=== PATIENT | male | born 2000 | race Caucasian/White ===

== ENCOUNTER 2020-10-10 18:25 | Emergency (ER) | payer BC ==
--- NOTE | 2020-10-10 19:40 | EDM.PDOC ---
ED HPI GENERAL MEDICAL PROBLEM - General Chief Complaint: Asthma Stated Complaint: SOB/ASTHMA Time Seen by Provider: 10/10/20 19:40 - History of Present Illness INITIAL COMMENTS - FREE TEXT/NARRATIVE: 20-year-old male presents the emergency room with breathing difficulties. This started earlier today the patient used his albuterol inhaler 1 time, 2 puffs and it did not really seem to help. He did this before the baseball game and then after playing the whole game he was not better so he came in for evaluation. Patient is somewhat anxious. And he has had problems with anxiety in the past. Patient denies a cough is not had any fevers or chills. He otherwise feels okay. He tried some deep breathing exercises now he has some discomfort right over his sternum. - Related Data Allergies Allergy/AdvReac Type Severity Reaction Status Date / Time No Known Allergies Allergy Verified 10/10/20 18:48 Home Meds: Home Meds . [No Known Home Meds] 10/10/20 [History] Past Medical History Respiratory History: Reports: Asthma Social & Family History - Tobacco Use Tobacco Use Status *Q: Never Tobacco User Second Hand Smoke Exposure: No - Caffeine Use Caffeine Use: Reports: None - Recreational Drug Use Recreational Drug Use: No ED ROS GENERAL - Review of Systems Review Of Systems: See Below Constitutional: Reports: No Symptoms HEENT: Reports: No Symptoms Respiratory: Reports: Other (Breathing just did not feel right). Denies: Wheezing, Cough, Sputum Cardiovascular: Reports: No Symptoms GI/Abdominal: Reports: No Symptoms : Reports: No Symptoms Musculoskeletal: Reports: No Symptoms Skin: Reports: No Symptoms Neurological: Reports: No Symptoms ED EXAM, GENERAL - Physical Exam Exam: See Below Exam Limited By: No Limitations General Appearance: Alert, No Apparent Distress Head: Atraumatic, Normocephalic Neck: Normal Inspection, Supple, Non-Tender, Full Range of Motion. No: Lymphadenopathy (L), Lymphadenopathy (R) Cardiovascular: Regular Rate, Rhythm, No Edema, No Murmur GI/Abdominal: Normal Bowel Sounds, Soft, Non-Tender Extremities: Normal Inspection, No Pedal Edema Neurological: Alert, Oriented, Normal Cognition Psychiatric: Anxious Lymphatic: No Adenopathy Course - Vital Signs Last Recorded V/S: Last Vital Signs Temp 36.7 C 10/10/20 18:47 Pulse 100 10/10/20 18:47 Resp 16 10/10/20 18:47 BP 130/85 10/10/20 18:47 Pulse Ox 100 10/10/20 18:47 - Orders/Labs/Meds Orders: Active Orders 24 hr Category Date Time Status RT Post Treatment Assessment [RC] Click to Edit Care 10/10/20 19:47 Active RT Pre-Treatment Assessment [RC] Click to Edit Care 10/10/20 19:47 Active Meds: Medications Discontinued Medications Generic Name Dose Route Start Last Admin Trade Name [place] PRN Reason Stop Dose Admin Albuterol 0 gm 10/10/20 19:47 10/10/20 19:54 Albuterol 6.7 Gm Inhaler INH 10/10/20 19:48 2 puff ONETIME ONE Administration Lorazepam 1 mg 10/10/20 19:45 10/10/20 19:54 Lorazepam 1 Mg Tab PO 10/10/20 19:46 Not Given ONETIME ONE - Re-Assessments/Exams Free Text/Narrative Re-Assessment/Exam: 10/10/20 21:08 Was given an Ativan and feels much better he was also given an albuterol MDI and this seems to help a little bit. But he thinks the Ativan is really what helped him. We will discharge home at this time. He is wanting to go home. Departure - Departure Time of Disposition: 21:09 Disposition: Home, Self-Care 01 Clinical Impression: Anxiety reaction, History of asthma Clinical Impression: (Ruled Out): Asthma action plan declined - Discharge Information Referrals: PCP,Not In Area [Primary Care Provider] - Forms: ED Department Discharge Additional Instructions: Return to the emergency room with any questions problems or worsening symptoms. Use your inhaler 2 puffs 4 times a day for several days and then decrease to 2-3 times a day for 3 days and then as needed. Establish with a local healthcare provider. Sepsis Event Note (ED) - Evaluation Sepsis Screening Result: No Definite Risk - Focused Exam Vital Signs: Vital Signs Temp Pulse Resp BP Pulse Ox 10/10/20 18:47 36.7 C 100 16 130/85 100 - My Orders Last 24 Hours: My Active Orders 10/10/20 19:47 RT Post Treatment Assessment [RC] Click to Edit RT Pre-Treatment Assessment [RC] Click to Edit - Assessment/Plan Last 24 Hours: My Active Orders 10/10/20 19:47 RT Post Treatment Assessment [RC] Click to Edit RT Pre-Treatment Assessment [RC] Click to Edit
[2020-10-10] MEDS ORDERED: LORazepam 1 MG Tab PO ONE (19:45)
[2020-10-10] MEDS ORDERED: Albuterol 6.7 GM Inhaler INH ONE (19:47)
== END 2020-10-10 21:28 | disposition home or self-care (01) ==
LOC: JD.ED 18:25
DX: F41.1 Generalized anxiety disorder (principal); J45.909 Unspecified asthma, uncomplicated
CPT/HCPCS: 99283; A9270